=== PATIENT | male | born 1975 | race African-American/Black ===

== ENCOUNTER 2025-04-12 17:49 | Emergency (ER) | payer OTHER, SELFPAY ==
[2025-04-12 18:05] VITALS: BP 146/79; PULSE 97; RESP 18; TEMP 38.1; O2SAT 100
[2025-04-12 19:01] LABS: EDUAAPPEAR Clear; EDUABILI Negative (Negative); EDUABLOOD Negative (Negative); EDUACOLOR1 Dark; EDUAGLUCOSE Negative (Negative); EDUAKETONE Negative (Negative); EDUALEUKO Negative (Negative); EDUANITRATE Negative (Negative); EDUAPH 6.0; EDUAPROTEIN Negative (Negative); EDUASPGRAVITY 1.020; EDUAUROBILI 0.2
--- NOTE | 2025-04-12 19:38 | ED.MALEGU ---
HPI - Male Genitourinary General Chief complaint: Urogenital-Male Stated complaint: Male Genital Problems Time Seen by Provider: 04/12/25 18:15 Source: patient and RN notes reviewed Mode of arrival: ambulatory Limitations: no limitations History of Present Illness HPI Narrative: 49-year-old male presents Express Care complaining of penile pain and swelling for 5 days. Patient states he isn't circumcised. Patient said he had is is for skin is swollen reports having pain operative his penis. Patient states his foreskin is not retracted. Patient says he can retract his foreskin just enough to get is urethra out to urinate. Patient denies any discharge. Patient denies any concerns STIs. Patient also reports having fevers. Patient denies any body aches, chills, nausea, vomiting, abdominal pain, back pain, urinary symptoms, or any other symptoms. Patient said he recently changed new body wash was not sure the cause day contact dermatitis. Related Data Home Medications ?Medication ?Instructions ?Recorded ?Confirmed ?Last Taken ?Type hydrochlorothiazide 25 mg tablet mg 04/12/25 Unknown History losartan 100 mg tablet mg 04/12/25 Unknown History losartan 50 mg tablet mg 04/12/25 Unknown History Allergies Allergy/AdvReac Type Severity Reaction Status Date / Time No Known Allergies Allergy Verified 04/12/25 18:09 Review of Systems Review of Systems: CONSTITUTIONAL: Denies fever, chills, or sweats. EYES: Denies visual changes, redness, or discharge. ENT: Denies rhinorrhea, congestion, sore throat, or otalgia. CARDIOVASCULAR: Denies chest pain, palpitations, or edema. RESPIRATORY: Denies cough or dyspnea. GASTROINTESTINAL: Denies abdominal pain, nausea, vomiting, or diarrhea. GENITOURINARY: Denies dysuria, testicular pain, testicular swelling, penile discharge, or hematuria. Positive for penile swelling. SKIN: Denies rash or itching. MUSCULOSKELETAL: Denies back pain, joint pain, or myalgia. NEUROLOGIC: Denies headache, numbness, or weakness. PSYCHIATRIC: Denies anxiety or depression. All other systems reviewed are negative, except as documented in HPI. PMFSH Comments At the time of my signature, I reviewed and agree with the nursing past medical, surgical, social, and family history. There is no relevant family history pertinent to the patient complaint. Exam Narrative: GENERAL: This is a well-nourished, well-developed adult, in no apparent distress. They are non ill-appearing, nontoxic appearing. HEAD: normocephalic, atraumatic. EYES: Sclera clear/white. Conjunctiva normal. Vision is grossly intact. Extraocular movements intact EARS: External ears normal, Hearing grossly intact. NOSE: External nose normal THROAT: Mucous membranes moist, NECK: Neck supple, CARDIOVASCULAR: Regular rate and rhythm RESPIRATORY: Respiratory rate normal, respiratory effort nonlabored, no respiratory distress GASTROINTESTINAL: Abdomen soft, non-tender, nondistended. Bowel sounds are active. No hepato-splenomegaly, or palpable masses. No guarding. GENITOURINARY: Patient's foreskin skin is erythematous. foreskin is not retracted. Patient able to retract it enough to expose is urethra. Unable to fully visualize glans penis, no obvious redness, drainage, discharge, or crusting present. Scrotum normal. Testicles normal. SKIN: warm, Dry, intact with no suspicious lesions or rash, good texture and turgor. NEURO: awake, alert, and oriented to person, place and time. There were no obvious focal neurologic abnormalities. EXTREMITIES: No joint tenderness, effusion, or edema noted. Course Course Emergency Course: Portions of this record may have been created with voice recognition software Level of Care: Express Care Visit Vital Signs Vital signs: Vital Signs Temperature 100.5 F H 04/12/25 18:05 Pulse Rate 97 04/12/25 18:05 Respiratory Rate 18 04/12/25 18:05 Blood Pressure 146/79 H 04/12/25 18:05 Pulse Oximetry 100 04/12/25 18:05 Oxygen Delivery Room Air 04/12/25 18:05 Temperature 100.5 F H 04/12/25 18:05 Pulse Rate 97 04/12/25 18:05 Respiratory Rate 18 04/12/25 18:05 Blood Pressure 146/79 H 04/12/25 18:05 Pulse Oximetry 100 04/12/25 18:05 Oxygen Delivery Room Air 04/12/25 18:05 Reviewed Transfer Transfered to: [facility] Transportation: Other (Private vehicle) Transfer rationale: Higher level care, penile swelling and pain, fevers Accepting physician: Janet Merchant PA-C MDM - Male Genitourinary MDM Narrative Medical decision making narrative: Patient's foreskin is unretracted. No retraction behind the glans penis. Likely patient has balanitis. Patient can retract his foreskin enough to expose urethra to urinate. Patient is febrile today. Called over to [place] [facility] to discuss case was relieved it is balanitis and recommend anti fungal cream and hydrocortisone the they are okay with patient may transfer the ER for further evaluation. Spoke with Janet Merchant PA-C was wear this patient except the patient return to the ER. Given patient's symptoms, it is recommend the patient seek a higher level care and proceed immediately to the emergency department. Patient is agreeable [place] ER however he states he will not a right till tomorrow. Encouraged patient to try to go tonight if able. Will send patient home on clotrimazole cream hydrocortisone cream. Patient's urine dipstick was negative for any evidence of infection. Patient was tested for chlamydia, gonorrhea, Trichomonas which are pending. Urine culture is pending as well. Will refer patient to urology. Patient will be notified of those results. Discussed physical exam findings. Advised supportive measures and signs/symptoms to go to the ER. Pt is appropriate for outpt treatment and f/u. Differential Diagnosis Differential diagnosis: Likely other (Phimosis, paraphimosis, balanitis, contact dermatitis, STD) Lab Data Attestation: I reviewed the patient's lab results. Labs: Lab Results 04/12/25 Range/Units 18:59 POC Urine Color Dark POC Urine Clarity Clear POC Urine pH 6.0 POC Ur Specif [place] 1.020 POC Urine Protein Negative (Negative) POC Ur Glucose (UA) Negative (Negative) POC Urine Ketones Negative (Negative) POC Urine Blood Negative (Negative) POC Urine Nitrite Negative (Negative) POC Urine Bilirubin Negative (Negative) POC Urine Urobilinogen 0.2 POC U Leukocyte Esteras Negative (Negative) Critical Care Time Critical Care Time Critical Care Time: No Discharge Plan Discharge Clinical Impression: Balanoposthitis Patient Disposition: Home Condition: Stable Instructions: Antibiotic Form, Balanitis (ED) Additional Instructions: Your urine dipstick was negative for any evidence of infection. A urine culture, chlamydia, gonorrhea, Trichomonas is pending. If anything is positive, you will be contacted started on appropriate antibiotics. Appears You may likely have balanitis. Please stop using the new body wash try using a hypoallergenic soap they twice daily with a saline solution. Use the home trim is all and hydrocortisone cream twice daily for the next 2 weeks. Apply to the affected area. Do not use this more than 2 weeks. Follow-up with Urology in 3-5 days. If you developed worsening redness, swelling, unable to urinate, testicular pain, your foreskin becomes retracted or any serious concerns please go to the ER immediately. Patient Language: [place] Prescriptions: New clotrimazole 1 % cream 1 applic topical BID 14 Days Qty: 30 0RF Rx Instructions: Apply to affected area hydrocortisone 1 % cream 1 applic topical BID 14 Days Qty: 28.35 0RF Rx Instructions: Apply to affected area No Action losartan 50 mg tablet hydrochlorothiazide 25 mg tablet losartan 100 mg tablet Follow-up/Referrals: PHYSICIAN,[facility] [employer] [Primary Care Provider, Internal Medicine] Stand Alone Forms: Work/School Release IP Time of Disposition: 19:15
[2025-04-13 19:27] LABS: Trichomonas Vag PCR NOT DETECTED (NOT DETECTE)
== END 2025-04-12 19:23 | disposition home or self-care (01) ==
DX: N47.6 Balanoposthitis (principal); Z11.3 Encounter for screening for infections with a predominantly sexual mode of transmission
CPT/HCPCS: 81003; 87086; 87491; 87591; 87661; 99213; G0463

== ENCOUNTER 2025-07-07 09:55 | Emergency (ER) | payer OTHER, SELFPAY ==
--- NOTE | ~2025-07-07 | XR_ITS ---
Clinical History: fall 2X days ago- left sided neck pain Examination: [id number] Comparison: None Technique: 4 views cervical spine Findings: No acute fracture or listhesis. Vertebral bodies normal height and alignment. Prevertebral soft tissues within normal limits. Disc spaces maintained. Mild degenerative changes. Impression: No acute fracture or listhesis cervical spine. Reviewed, dictated and finalized at location [facility] Impression: No acute fracture or listhesis cervical spine.
--- NOTE | 2025-07-07 09:56 | ED.UPPEXIN ---
HPI - Extremity Injury (Upper) General Chief Complaint: Neck Pain/Injury Stated Complaint: Left Shoulder Pain Time Seen by Provider: 07/07/25 09:56 Source: patient Mode of arrival: ambulatory Limitations: no limitations History of Present Illness HPI narrative: Jess is a 49 year old male patient presenting to the clinic today with c/o left neck pain x2 day. He reports he slipped on some ice night when walking home from work. Is c/o pain to the left side of his neck. Landed on his left side. Denies hitting his head or any LOC. Does have occasional headaches. Has used icy hot for his symptoms. Rates pain 5/10 tightness- unable to turn neck side to side. Related Data Home Medications ?Medication ?Instructions ?Recorded ?Confirmed ?Last Taken ?Type hydrochlorothiazide 25 mg tablet mg 04/12/25 Unknown History losartan 100 mg tablet mg 04/12/25 Unknown History Allergies Allergy/AdvReac Type Severity Reaction Status Date / Time No Known Allergies Allergy Verified 07/07/25 09:57 Review of Systems Review of Systems: Pertinent positives per HPI. Patient denies any fever, chills, rash, visual changes, dizziness, cough, runny nose, sore throat, shortness of breath, chest pain, palpitations, nausea, vomiting, diarrhea, constipation, abdominal pain, or any urinary issues. PMFSH Comments At the time of my signature, I reviewed and agree with the nursing past medical, surgical, social, and family history. There is no relevant family history pertinent to the patient complaint. Exam Narrative: General: Well-developed, well nourished, in no apparent distress Head: Normocephalic, atraumatic. Cardio: Regular rate and rhythm, s1 and s2 normal, no murmur appreciated. Resp: Clear to auscultation bilaterally, no rhonchi, rales, wheezing or rubs. Musculoskeletal: No deformity, ttp over the left cervical trapezius musculature, pain over the left neck/ trapezius when turning head to right against resistance, limited rom due to pain, muscle strength strong and equal, peripheral pulse strong, no edema, no cyanosis, normal gait and station Course Course Level of Care: Express Care Visit Vital Signs Vital signs: Vital Signs Temperature 37.3 C 07/07/25 10:07 Pulse Rate 81 07/07/25 10:07 Respiratory Rate 18 07/07/25 10:07 Blood Pressure 153/107 H 07/07/25 10:07 Pulse Oximetry 98 07/07/25 10:07 Oxygen Delivery Room Air 07/07/25 10:07 Temperature 37.3 C 07/07/25 10:07 Pulse Rate 81 07/07/25 10:07 Respiratory Rate 18 07/07/25 10:07 Blood Pressure 153/107 H 07/07/25 10:07 Pulse Oximetry 98 07/07/25 10:07 Oxygen Delivery Room Air 07/07/25 10:07 MDM MDM Narrative Medical decision making narrative: At the time of visit patient is resting comfortably on the exam table. Patient appears to be nontoxic. C/o left neck pain day. He reports he slipped on some ice night when walking home from work. Is c/o pain to the left side of his neck. Landed on his left side. Denies hitting his head or any LOC. Does have occasional headaches. Has used icy hot for his symptoms. Rates pain 5/10 tightness- unable to turn neck side to side.On exam patient ttp over the left cervical trapezius musculature, pain over the left neck/ trapezius when turning head to right against resistance, limited rom due to pain, muscle strength strong and equal, peripheral pulse strong, no edema, no cyanosis, normal gait and station Plan: I suspect patient has a left cervical neck strain of the trapezius musculature. Prescription for baclofen and Medrol Dosepak was sent to the pharmacy. Supportive measures were discussed with the patient and they voiced understanding discharge instructions and agrees to treatment plan. Return precautions reviewed Differential Diagnosis Differential Diagnosis: Differential diagnostic considerations for upper extremity injury include sprain/strain of wrist, fracture of wrist, finger sprain, dislocation of finger, fracture of hand, dislocation of shoulder, fracture of humerus, fracture of clavicle, laceration, tendon injury, carpal tunnel syndrome. Imaging Data Radiologist's impression: ITS Impressions Cervical Spine X-Ray 07/07/25 10:40 Impression: No acute fracture or listhesis cervical spine. Discharge Plan Discharge Clinical Impression: Posterolateral cervical muscle strain Qualifiers: Encounter type: initial encounter Qualified Code(s): S16.1XXA - Strain of muscle, fascia and tendon at neck level, initial encounter Patient Disposition: Home Condition: Stable Instructions: Antibiotic Form, Cervical Strain (ED) Additional Instructions: X-rays negative for any fracture or malalignment of the cervical spine. Take prescription medications only as prescribed-Medrol Dosepak and baclofen Be mindful of sedation precautions given to you if taking a muscle relaxer. May use heat or ice to the affected area Consider massage or chiropractor adjustment if this was discussed with provider May use blue emu, lidocaine patches, or asper cream to affected area- do not apply heat or ice directly over cream- can cause burn. Complete appropriate neck stretching exercises. Follow up with your PCP in 3-5 days if symptom persist. Patient Language: Vincentian Prescriptions: New methylprednisolone [Medrol ([facility])] 4 mg tablets,dose pack See Rx Instructions PO .COMPLEX Qty: 21 0RF Rx Instructions: orally per package directions baclofen 10 mg tablet 10 mg PO TID PRN (Reason: muscle spasm) 7 Days Qty: 21 0RF No Action hydrochlorothiazide 25 mg tablet losartan 100 mg tablet Follow-up/Referrals: UNKNOWN,DOCTOR [Non-Staff] Time of Disposition: 10:33 Quality NIHSS Nursing Documentation ED NIHSS nursing documentation: reviewed/agree
[2025-07-07 10:07] VITALS: BP 153/107; PULSE 81; RESP 18; TEMP 37.3; O2SAT 98
== END 2025-07-07 10:50 | disposition home or self-care (01) ==
PROVIDERS: Emergency Provider Nurse Practitioner Family
DX: S16.1XXA Strain of muscle, fascia and tendon at neck level, initial encounter (principal); W00.0XXA Fall on same level due to ice and snow, initial encounter; I10 Essential (primary) hypertension
CPT/HCPCS: 72040; 99213; G0463